=== PATIENT | female | born 1980 | race Two or more races ===

== ENCOUNTER 2020-10-28 04:34 | Emergency (ER) | payer OTHER ==
[~2020-10-28] VITALS: Ht 157.5 cm; Wt 60.8 kg
[2020-10-28] MEDS ORDERED: TYLENOL (05:00)
== END 2020-10-28 11:27 | disposition home or self-care (01) ==
LOC: ER 04:34
DX: N20.0 Calculus of kidney (principal); R10.32 Left lower quadrant pain